=== PATIENT | male | born 1960 | race Caucasian/White ===

== ENCOUNTER → 2023-09-06 13:38 | Outpatient (REF) | payer OTHER, SELFPAY | LOC: PAVMRI 13:38 | PROVIDERS: ATTENDING PHYSICIAN Orthopaedic Surgery; FAMILY PHYSICIAN Internal Medicine | DX: M25.542 Pain in joints of left hand (principal) | CPT/HCPCS: 73218 ==

== ENCOUNTER → 2023-09-07 09:50 | Outpatient (REF) | payer OTHER, SELFPAY | LOC: RST 09:50 | PROVIDERS: ATTENDING PHYSICIAN Nurse Practitioner | DX: K21.00 Gastro-esophageal reflux disease with esophagitis, without bleeding (principal) | CPT/HCPCS: 74230; 92611 ==